=== PATIENT | female | born 1990 | race Caucasian/White ===

== ENCOUNTER 2018-03-23 10:58 | Emergency (ER) | payer MEDICAID ==
[~2018-03-23] VITALS: Ht 154.9 cm; Wt 72.6 kg
[2018-03-23 11:03] VITALS: Ht 154.9 cm; Wt 72.6 kg
[2018-03-23 12:10] LABS: CALCIUM 8.8 mg/dL (8.5-10.1); CARBON DIOXIDE 26.9 mmol/L (21-32); CHLORIDE SERUM 103 mmol/L (98-107); CREATININE SERUM 0.6 mg/dL (0.6-1.0); GFR1 > 60 mL/min; GLUCOSE SERUM 93 mg/dL (74-106); POTASSIUM SERUM 3.9 mmol/L (3.5-5.1); SODIUM SERUM 136 mmol/L (136-145)
[2018-03-23 12:16] LABS: ALKALINE PHOSPHATASE 47 U/L (46-116); ALT/SGPT 25 U/L (14-59); AST/SGOT 18 U/L (15-37); BILIRUBIN TOTAL 0.5 mg/dL (0.20-1.00); LIPASE 130 IU/L (73-393); TOTAL PROTEIN, SERUM 7.8 g/dL (6.4-8.2)
[2018-03-23 12:32] LABS: microscopic required? NO
[2018-03-23 12:41] LABS: BASOPHIL % 0.4 % (0-2); PLATELET COUNT 221 x10^3mcL (130-400); RED CELL DISTRIBUTION WIDTH 13.2 % (11.5-14.5)
[2018-03-23 12:44] VITALS: BP 105/63
[2018-03-23 12:47] LABS: urine erythrocyte NEGATIVE (NEGATIVE)
== END 2018-03-23 13:19 | disposition home or self-care (01) ==
LOC: ED 10:58
PROVIDERS: Emergency Medicine
DX: R10.9 Unspecified abdominal pain (principal)
CPT/HCPCS: J1885; J7030; Q0092

== ENCOUNTER 2019-10-28 18:17 | Emergency (ER) | payer MEDICAID ==
[~2019-10-28] VITALS: Ht 154.9 cm; Wt 75.3 kg
[2019-10-28 18:39] VITALS: Ht 154.9 cm; Wt 75.3 kg
[2019-10-28 20:26] VITALS: BP 118/61
== END 2019-10-28 20:26 | disposition home or self-care (01) ==
LOC: ED 18:17
DX: S92.525A Nondisplaced fracture of middle phalanx of left lesser toe(s), initial encounter for closed fracture (principal); F41.9 Anxiety disorder, unspecified; W22.03XA Walked into furniture, initial encounter; Y93.89 Activity, other specified; Y92.89 Other specified places as the place of occurrence of the external cause; Y99.8 Other external cause status
CPT/HCPCS: J1885; Q0092